=== PATIENT | male | born 1965 | race American Indian/Alaskan Native ===

== ENCOUNTER → 2016-07-17 | Outpatient (CLI) | payer BC ==
[~2016-07-17] MED LIST: CHOLESTEROL MED PO; MULT-506 PO; PARO1TAB27 PO
--- NOTE | 2016-07-17 13:46 | DIAGNOSTIC IMAGING REPORT ---
TWO VIEW CHEST CLINICAL HISTORY: Chronic cough. FINDINGS: PA and lateral chest radiographs are compared to study dated 01/01/2011. The cardiomediastinal silhouette is unremarkable. There are airspace opacities at the left lung base with elevation of the left hemidiaphragm. The lungs are otherwise clear. No pleural effusion or pneumothorax is seen. The bony thorax appears intact. IMPRESSION: Airspace opacities at the left lung base likely represent atelectasis. Correlate clinically for evidence of a superimposed infectious or inflammatory pneumonitis. Electronically signed by: Bartolo Garcia M.D. 07/17/2016 1:44 PM Dictated Date/Time: 07/17/2016 1:43 PM
== END | disposition home or self-care (01) ==
LOC: C.RAD1850 13:29
PROVIDERS: ATTEND Family Medicine
DX: R05 Cough (principal)

== ENCOUNTER → 2016-11-01 | Outpatient (CLI) | payer BC ==
[~2016-11-01] MED LIST changes: +LXP10 PO; +SIMV10TA2 PO
--- NOTE | 2016-11-01 09:35 | DIAGNOSTIC IMAGING REPORT ---
RIGHT KNEE 4 VIEWS INCLUDING BILATERAL STANDING AP VIEWS CLINICAL HISTORY: Right knee pain COMPARISON: None. DISCUSSION: No acute fractures are visualized. There are mild osteoarthritic changes. There is a small dorsal patellar spur. There is minor narrowing medial joint compartment. No destructive lesions are visualized. IMPRESSION: Mild osteoarthritic change. No acute fractures. Electronically signed by: Connor Quesada M.D. 11/01/2016 9:33 AM Dictated Date/Time: 11/01/2016 9:32 AM
== END | disposition home or self-care (01) ==
LOC: C.RDSM 09:25
PROVIDERS: ATTEND Physician Assistant
DX: M25.561 Pain in right knee (principal)

== ENCOUNTER → 2016-12-20 | Outpatient (CLI) | payer BC ==
--- NOTE | 2016-12-20 09:06 | DIAGNOSTIC IMAGING REPORT ---
(BLAD) RETROPERITONEAL LTD CLINICAL HISTORY: OVERFLOW INCONTINENCE, MICROSCOPIC HEMATURIA COMPARISON STUDY: Abdomen and pelvis CT 07/28/2010. FINDINGS: There is a 15 mm nodule seen within the posterior bladder. This is increased in size in the prior study study from 2010 when it measured 8 mm. This favors an exophytic prostate nodule. The prostate gland is mildly enlarged measuring 4.7 cm. Mild bladder wall thickening which may be due to chronic outlet obstruction. The bilateral ureteral jets are identified. IMPRESSION: Increase in size in the 15 mm nodule within the posterior bladder which favors an exophytic prostate nodule. However, recommend direct visualization with cystoscopy for confirmation and to exclude the less likely possibility of a urothelial lesion. Electronically signed by: Randy Padron M.D. 12/20/2016 9:04 AM Dictated Date/Time: 12/20/2016 8:59 AM
== END | disposition home or self-care (01) ==
LOC: C.ULTR 08:34
PROVIDERS: ATTEND Family Medicine
DX: N39.490 Overflow incontinence (principal); R31.29 Other microscopic hematuria

== ENCOUNTER → 2017-05-18 | Outpatient (CLI) | payer BC ==
[2017-05-18 16:17] LABS: BASO % 0.4 %; BASO ABS # 0.04 K/uL (0-0.2); COMPLETE YES; EOS % 3.1 %; HEMATOCRIT 43.6 % (42-52); IG% 0.2 %; LYMPH % 30.4 %; LYMPH ABS # 2.87 K/uL (1.2-3.4); MEAN CELL VOLUME 89.2 fL (80-100); MEAN CORPUSCULAR HEMOGLOBIN 30.9 pg (25-34); MEAN CORPUSCULAR HGB CONC 34.6 g/dl (32-36); MEAN PLATELET VOLUME 10.7 fL (7.4-10.4); MONO % 7.4 %; NEUT % 58.5 %; PLATELET COUNT 224 K/uL (130-400); RED BLOOD COUNT 4.89 M/uL (4.7-6.1); WHITE BLOOD COUNT 9.44 K/uL (4.8-10.8)
[2017-05-18 16:25] LABS: INR 1.1 (0.9-1.1); PARTIAL THROMBOPLASTIN RATIO 1.1; PROTHROMBIN TIME (PATIENT) 11.5 SECONDS (9.0-12.0)
[2017-05-18 16:42] LABS: BLOOD UREA NITROGEN 26 mg/dl (7-18); BUN/CREATININE RATIO 27.9 (10-20); CALCIUM 9.6 mg/dl (8.5-10.1); CARBON DIOXIDE 30 mmol/L (21-32); CHLORIDE 106 mmol/L (98-107); CREATININE 0.93 mg/dl (0.60-1.40); GLUCOSE 87 mg/dl (70-99); POTASSIUM 4.6 mmol/L (3.5-5.1); SODIUM 141 mmol/L (136-145)
== END | disposition home or self-care (01) ==
LOC: C.CPL 14:48
PROVIDERS: ATTEND Plastic Surgery
DX: D17.9 Benign lipomatous neoplasm, unspecified (principal); Z01.818 Encounter for other preprocedural examination

== ENCOUNTER → 2017-05-25 | Day surgery (SDC) | payer BC ==
[2017-05-22 15:22] VITALS: Ht 177.8 cm; Wt 95.5 kg
[~2017-05-25] VITALS: Ht 177.8 cm; Wt 95.5 kg
[~2017-05-25] MED LIST changes: +ACETAMINOPHEN 325 MG TAB PO PRN; +ATROPINE SULFATE 0.1 MG/ML 5ML SYR IV PRN; +BUPIVACAINE 0.25% 30 ML VIAL ONE; +CEFAZOLIN 2000MG IV PUSH 10 ML IV SCH; -CHOLESTEROL MED PO; +DEXAMETHASONE SOD INJ 4 MG/ML VIAL ONE; +EpHEDrine SULFATE INJ 50 MG/ML AMP IV PRN; +FENTANYL CITRATE INJ 50 MCG/1 ML 2 ML VIAL IV PRN; +FENTANYL CITRATE INJ 50 MCG/1 ML 2 ML VIAL ONE; +HYDROmorphone INJ 1 MG/ML SYR IV PRN; +LIDOCAINE/EPINEPHRINE 1% INJ 50 ML VIAL ONE; +METOCLOPRAMIDE HCL INJ 5 MG/ML 2 ML VIAL IV PRN; +MIDAZOLAM HCL 1 MG/ML 2ML VIAL ONE; -MULT-506 PO; +ONDANSETRON INJ 2 MG/ML 2 ML VIAL IV PRN; +ONDANSETRON INJ 2 MG/ML 2 ML VIAL ONE; +OXYCODONE/ACETAMINOPHEN 5-325 TAB PO PRN; -PARO1TAB27 PO; +PROMETHAZINE HCL INJ 12.5 MG in SODIUM CHLORIDE 0.9% 50ML 50 ML IV PRN; +PROPOFOL IV EMULSION 10 MG/ML 20 ML VIAL IV ONE; +SODIUM CHLORIDE 0.9% 1000ML 1,000 ML IV SCH; +SUCCINYLCHOLINE CHLORIDE 20 MG/ML 10 ML VIAL IV ONE
--- NOTE | 2017-05-25 09:49 | History & Physical Bridge - SC ---
H&P Re-Evaluation Bridge Note: I have examined the patient, reviewed the History & Physical and in the interval since the performance of the History & Physical I have noted the following changes of clinical significance: No changes noted
[2017-05-25] MEDS: LACTATED RINGER'S 1000ML 1,000 ML IV SCH ×2 (09:52→12:38)
--- NOTE | 2017-05-25 11:50 | [facility] Post Operative Brief Note ---
Immediate Operative Summary Operative Date May 25, 2017. Pre-Operative Diagnosis Right Lower Back Lipoma Post-Operative Diagnosis Same Procedure(s) Performed Right Lower Back Lipoma Excision Surgeon Dr. Diallo Developer Advocate Surgeon(s) Eugene Hsu PA-C Estimated Blood Loss 1 Findings 5x4 cm subcutaneous lipoma right lower back Specimens lipoma to path Anesthesia general Complication(s) None Disposition Recovery Room / PACU
--- NOTE | 2017-05-25 12:03 | Discharge Instructions ---
Discharge Instructions Date of Service May 25, 2017. Admission Reason for Admission: Lipoma Right Lower Back Discharge Discharge Diagnosis / Problem: lipoma Discharge Goals Goal(s): Decrease discomfort Activity Recommendations Activity Limitations: per Instructions/Follow-up section ACTIVITY RECOMMENDATIONS: __Normal activities _x_No bending, lifting or straining __No driving _x_Driving allowed when you are off pain medications _x_Walking permitted __You should have help at home for ___ days DRESSINGS: __No dressings required _x_Keep dressings dry/in place until Sunday. You do not need to place any dressing over incision after removing it on Sunday. Do not apply any ointments to your incision __Remove dressings ___ and leave dressings off __Apply ice ___ days __Remove dressings and reapply garment __Apply antibiotic ointment (Bacitracin, Neosporin, etc) to wounds 3-4 times/ day for 10 days BATHING: _x_Keep dressings dry _x_Sponge bathing permitted _x_Showering permitted on Sunday. Remove dressing before shower. Let water run over incision and pat dry. _x_No swimming, hot tubs or soaking in a tub MEDICATIONS: Resume previous medications unless instructed otherwise by your surgeon. _x_Do not use aspirin, Motrin, Advil or Ibuprofen as these may promote bleeding. Please use Tylenol. _x_Prescription(s) provided: pain medication was provided at your last office visit OTHER INSTRUCTIONS: __Record drain output 2-3 times per day SPECIAL CARE INSTRUCTIONS: * It is normal to have a mild fever after surgery. If your temperature is higher than 101.5 degrees F, please call the office at [phone]. * Constipation is a typical side effect of pain medication. An over-the- counter stool softener will help relieve this. * Leaking around surgical drains may occur and should not cause concern. Sometimes these drains become clogged. If this happens, remove the bulb and milk the clot out of the tube, then replace the bulb. * Drainage from wounds after liposuction is normal and should be expected. Garments will become soiled. You should protect furniture and bedding. This drainage should mostly subside within 2-3 days. Leave garments in place unless instructed to remove them. * If you have unusual drainage from a wound or are concerned you have an infection or have any questions or concerns, please call the office at [phone]. FOLLOW UP VISIT: If not already scheduled, please call the office, , when you return home after surgery to schedule an appointment to be seen in __5_ days. . Current Hospital Diet Patient's current hospital diet: Discharge Diet Recommended Diet: Regular Diet Procedures Procedures Performed: Right Lower Back Lipoma Excision Pending Studies Studies pending at discharge: yes List of pending studies: pathology Medical Emergencies . Who to Call and When: Medical Emergencies: If at any time you feel your situation is an emergency, please call 911 immediately. . Non-Emergent Contact Non-Emergency issues call your: Primary Care Provider, Surgeon . "Provider Documentation" section prepared by Berenice Hsu. . VTE Core Measure Inpt VTE Proph given/why not?: SCD's [place] Drug Monitoring Program Search Results: no issues identified
--- NOTE | 2017-05-25 12:23 | OPERATIVE REPORT ---
DATE OF OPERATION: 05/25/2017 PREOPERATIVE DIAGNOSIS: Right lower back lipoma. POSTOPERATIVE DIAGNOSIS: Same. PROCEDURE: Excision of 5 x 4 cm right lower back lipoma. SURGEON: Dr. Criselda Diallo. GUM PULLER: Berenice Hsu PA-C and MARGO Resendiz. ANESTHESIA: General. COMPLICATIONS: None. INDICATION FOR THE PROCEDURE: The patient is a 52-year-old male who presented to my office with concerns of an enlarging and uncomfortable mass of his right lower back felt to be a lipoma. BRIEF DESCRIPTION OF THE PROCEDURE: Risks, benefits, and alternatives of the procedure were explained to the patient who agreed and signed consent. He was identified and marked in the preoperative holding area. He was brought to the operating room where he was placed under anesthesia and then positioned prone. Surgical site was prepped and draped sterilely. A time-out procedure was performed. 1% lidocaine with epinephrine mixed with 0.25% Marcaine plain was used to anesthetize the planned incision as well as the surrounding soft tissue. A 15 blade scalpel was used to make the incision through skin and dermis deep to the dermis and within the underlying subcutaneous fat. A well circumscribed lipoma was identified. It was well encapsulated and the fibrous capsule and the attachments were carefully divided using electrocautery and a curved hemostat. The lipoma was able to be removed in its entirety. Hemostasis was achieved with electrocautery. Additional 0.25% Marcaine plain and 1% lidocaine with epinephrine were injected into the wound base prior to closure. Wound was reapproximated using 2-0 Vicryl deep dermal sutures and 3-0 Monocryl running subcuticular suture. Dermabond was applied. The procedure was tolerated well. The patient was awakened and transferred to recovery room in satisfactory condition. I attest to the content of the Intraoperative Record and any orders documented therein. Any exception s are noted below.
[2017-05-25 12:54] VITALS: TEMP 36.4
--- NOTE | 2017-05-25 13:08 | Anesthesia Progress Nt - [facility] ---
Anesthesia Post Op Note Date & Time May 25, 2017 at 13:08 Vital Signs Pain Intensity: 0 Vital Signs Past 12 Hours Date Time Temp Pulse Resp B/P (MAP) Pulse Ox O2 Delivery O2 Flow Rate FiO2 05/25/17 12:54 36.4 56 16 127/81 (96) 100 Room Air 05/25/17 12:52 36.4 05/25/17 12:51 56 13 132/65 (92) 96 05/25/17 12:51 55 13 05/25/17 12:46 55 13 05/25/17 12:46 54 13 125/78 (98) 97 05/25/17 12:41 58 11 99 05/25/17 12:41 57 11 05/25/17 12:40 142/90 (103) 05/25/17 12:36 56 15 05/25/17 12:36 57 15 122/86 (101) 99 05/25/17 12:31 61 18 05/25/17 12:31 60 18 137/61 (101) 100 05/25/17 12:26 63 16 100 05/25/17 12:26 63 16 05/25/17 12:25 130/94 (105) 05/25/17 12:21 65 14 05/25/17 12:21 64 14 100 05/25/17 12:20 138/93 (116) 05/25/17 12:20 Room Air 05/25/17 12:16 59 14 100 05/25/17 12:16 61 14 05/25/17 12:15 129/89 (94) 05/25/17 12:11 64 134/78 (99) 99 05/25/17 12:11 64 05/25/17 12:08 36.3 63 12 134/78 5 Diffusion Mask 05/25/17 09:42 36.6 59 16 131/77 (95) 98 Room Air Notes Mental Status: alert / awake / arousable, participated in evaluation Pt Amnestic to Procedure: Yes Nausea / Vomiting: adequately controlled Pain: adequately controlled Airway Patency, RR, SpO2: stable & adequate BP & HR: stable & adequate Hydration State: stable & adequate Anesthetic Complications: no major complications apparent
[2017-05-25 13:19] VITALS: BP 127/79; PULSE 52; O2SAT 99
== END | disposition home or self-care (01) ==
LOC: X.SURG 09:26
PROVIDERS: ATTEND Plastic Surgery
DX: D17.9 Benign lipomatous neoplasm, unspecified (principal); F41.9 Anxiety disorder, unspecified; E78.5 Hyperlipidemia, unspecified; Z90.89 Acquired absence of other organs; E78.00 Pure hypercholesterolemia, unspecified; N40.0 Benign prostatic hyperplasia without lower urinary tract symptoms

== ENCOUNTER → 2017-07-31 | Outpatient (CLI) | payer OTHER ==
[~2017-07-31] MED LIST changes: -ACETAMINOPHEN 325 MG TAB PO PRN; -ATROPINE SULFATE 0.1 MG/ML 5ML SYR IV PRN; -BUPIVACAINE 0.25% 30 ML VIAL ONE; -CEFAZOLIN 2000MG IV PUSH 10 ML IV SCH; -DEXAMETHASONE SOD INJ 4 MG/ML VIAL ONE; -EpHEDrine SULFATE INJ 50 MG/ML AMP IV PRN; -FENTANYL CITRATE INJ 50 MCG/1 ML 2 ML VIAL IV PRN; -FENTANYL CITRATE INJ 50 MCG/1 ML 2 ML VIAL ONE; -HYDROmorphone INJ 1 MG/ML SYR IV PRN; -LIDOCAINE/EPINEPHRINE 1% INJ 50 ML VIAL ONE; -METOCLOPRAMIDE HCL INJ 5 MG/ML 2 ML VIAL IV PRN; -MIDAZOLAM HCL 1 MG/ML 2ML VIAL ONE; -ONDANSETRON INJ 2 MG/ML 2 ML VIAL IV PRN; -ONDANSETRON INJ 2 MG/ML 2 ML VIAL ONE; -OXYCODONE/ACETAMINOPHEN 5-325 TAB PO PRN; -PROMETHAZINE HCL INJ 12.5 MG in SODIUM CHLORIDE 0.9% 50ML 50 ML IV PRN; -PROPOFOL IV EMULSION 10 MG/ML 20 ML VIAL IV ONE; -SODIUM CHLORIDE 0.9% 1000ML 1,000 ML IV SCH; -SUCCINYLCHOLINE CHLORIDE 20 MG/ML 10 ML VIAL IV ONE
--- NOTE | 2017-07-31 13:48 | DIAGNOSTIC IMAGING REPORT ---
SACRUM COCCYX MIN 2 VIEWS HISTORY: 52 years-old Male M53.3 acute coccygeal pain status post fall COMPARISON: CT abdomen and pelvis 07/28/2010, sacral radiographs 04/05/2010 TECHNIQUE: 3 views of the sacrum and coccyx FINDINGS: There is slight volar displacement of 3 mm involving the distal most portion of the coccyx which is unchanged from 04/05/2010. No acute fracture or subluxation identified. No pelvic ring fracture identified. Mild degenerative changes of the bilateral hips with intervertebral disc space narrowing and facet arthrosis of the lower lumbar spine. Indeterminate calcification projects over the left scrotal region, 8 mm. IMPRESSION: No acute fracture or subluxation. The above report was generated using voice recognition software. It may contain grammatical, syntax or spelling errors. Electronically signed by: Brice Reyes M.D. 07/31/2017 1:47 PM Dictated Date/Time: 07/31/2017 1:44 PM
== END | disposition home or self-care (01) ==
LOC: C.RAD 12:56
PROVIDERS: ATTEND Nurse Practitioner Family
DX: M53.3 Sacrococcygeal disorders, not elsewhere classified (principal)

== ENCOUNTER → 2017-08-02 | Outpatient (CLI) | payer OTHER ==
--- NOTE | 2017-08-02 07:34 | DIAGNOSTIC IMAGING REPORT ---
LEFT SHOULDER MRI HISTORY: Left shoulder pain. TECHNIQUE: Multiplanar multisequence MRI of the left shoulder was performed without contrast. COMPARISON STUDY: Left shoulder 06/26/2012. FINDINGS: AC joint: Moderate AC joint arthrosis demonstrated by small marginal osteophytes and edema both within and surrounding the joint. Rotator cuff: The subscapularis and teres minor tendons are intact. Focal full-thickness tear at the distal supraspinatus tendon measuring 6 mm. There is a partial bursal surface tear at the distal infraspinatus tendon. No associated retraction within the rotator cuff muscles. Mild fatty atrophy of the supraspinatus muscle. There is mild edema within the posterior aspect of the supraspinatus muscle. Labrum: Suboptimal evaluation of the labrum due to motion artifact. However, the labrum appears grossly intact. Biceps tendon: Intact Bones: No fracture or dislocation. Normal marrow signal intensity seen throughout the visualized osseous structures. Cartilage: Near full-thickness cartilage loss within the inferior glenoid. There is moderate thickening of the humeral head cartilage. There are marginal osteophytes seen at the humeral head. Findings are consistent with mild to moderate osteoarthritis. Miscellaneous: Trace joint effusion. IMPRESSION: 1. Focal full-thickness tear at the distal supraspinatus tendon without associated retraction. 2. Partial bursal surface tear at the distal infraspinatus tendon. 3. Mild to moderate osteoarthritis within the glenohumeral joint. Electronically signed by: Randy Padron M.D. 08/02/2017 7:33 AM Dictated Date/Time: 08/02/2017 7:26 AM
== END | disposition home or self-care (01) ==
LOC: C.MRI 06:03
PROVIDERS: ATTEND Family Medicine
DX: M75.102 Unspecified rotator cuff tear or rupture of left shoulder, not specified as traumatic (principal); M19.012 Primary osteoarthritis, left shoulder

== ENCOUNTER 2019-07-29 05:48 | Inpatient (IN) ==
--- NOTE | 2019-07-17 16:21 | PAT Medication Instructions ---
Medication Instructions Date of Service July 17, 2019 Home Medications simvastatin 10 mg PO HS Take evening before surgery simvastatin 10 mg PO HS *THEN NOTHING TO EAT OR DRINK AFTER MIDNIGHT* Other Notes If you have any questions please call us at [phone] or [phone] or [phone] or [phone]
--- NOTE | 2019-07-18 09:22 | Anesthesiology Consultation ---
Date of Service July 18, 2019 Assessment & Plan (1) Encounter for pre-operative examination: Chart Review Chart Review: Acceptable Risk for Surgery (pending pre op labs) and Patient seen in Pre Admission Testing Teaching & Discussion Instructed NPO after midnight before surgery, except medications with 15 cc of water. Medication instructions provided according to the PAT guidelines. History Surgery Operation Date: 07/29/19 07:30 Proposed Procedures p Right Robotic Laparoscopic Assisted Partial Nephrectomy - Curtis Sinha MD Height/Weight Height: 5 ft 8 in Weight: 92.3 kg Allergies Allergy/AdvReac Type Severity Reaction Status Date / Time WASP STING Allergy Unknown HX OF , Uncoded 07/17/19 15:28 SOB - SEE NOTES BELOW Medications Home Medications Medication Instructions Recorded Confirmed Last Taken simvastatin 10 mg PO HS 11/24/18 07/17/19 07/16/19 Past Medical History Medical History Claustrophobia Hyperlipidemia Pulmonary nodule Right renal mass Exercise / Class Metabolic Activity II 4-5 Yardwork/Stairs/Walk up hill (Denies CP or SOB with 1 FOS) Past Surgical History Surgical History History of appendectomy History of colonoscopy History of hernia surgery X3 History of knee surgery History of transurethral resection of prostate X2 Past Anesthesia History No Hx of Anesthesia Complications and No Family Hx of Anesthesia Complications History of PONV No Hx of PONV and Hx of Motion Sickness Social History Smoking Status: Never smoker Do You Dip or Chew Tobacco: No Hx Alcohol Use: No Hx Substance Use: No substance use type: does not use Review of Systems Pt denies any recent chest pain, shortness of breath, palpitations, cough, fever or URI. Physical Exam Vital Signs BP: 142/79 P: 69bpm SPO2: 98% RA T: 97.9 F R: 16 ENMT Mouth: + dental bridge (large, upper front teeth); no chipped teeth and no loose teeth Thyromental Distance: > or= 3.5 Finger Breadths (3.5) Mallampati Class: I Neck normal visual inspection; neck extension not limited Respiratory normal respiratory effort Auscultation: lungs clear to auscultation bilaterally Cardiovascular Rate/Rhythm: regular rate and regular rhythm Heart Sounds: no murmur Vessels: no carotid bruit
[2019-07-18 11:06] LABS: Appearance Urine Clear (Clear); Basophils # (auto) 0.01 K/uL (0-0.2); Basophils % (auto) 0.2 %; Bilirubin Urine Negative (Negative); Blood Urine Negative (Negative); Color Urine Dark Yellow; Eosinophils # (auto) 0.24 K/uL (0-0.5); Eosinophils % (auto) 3.8 %; Glucose Urine UA Negative (Negative); Hematocrit (blood only) 42.8 % (42-52); Hemoglobin 14.7 g/dL (14.0-18.0); Immature Granulocytes # (auto) 0.01 K/uL (0.00-0.02); Immature Granulocytes % (auto) 0.2 %; Ketones Urine Negative (Negative); Leukocyte Esterase Urine Negative (Negative); Lymphocytes # (auto) 1.87 K/uL (1.2-3.4); Lymphocytes % (auto) 29.3 %; Mean Corpuscular Hemoglobin 30.1 pg (25-34); Mean Corpuscular Hgb Conc 34.3 g/dL (32-36); Mean Corpuscular Volume 87.5 fL (80-100); Mean Platelet Volume 10.8 fL (7.4-10.4); Monocytes % (auto) 9.4 %; Neutrophils # (auto) 3.66 K/uL (1.4-6.5); Neutrophils % (auto) 57.1 %; Nitrite Urine Negative (Negative); Platelet Count 202 K/uL (130-400); Protein Urine Negative (Negative); RDW Coefficient of Variation 12.7 % (11.5-14.5); RDW Standard Deviation 40.6 fL (36.4-46.3); Red Blood Count 4.89 M/uL (4.7-6.1); Specific Gravity Urine 1.026 (1.000-1.030); Urobilinogen Urine Negative (Negative); White Blood Count 6.39 K/uL (4.8-10.8)
[2019-07-18 11:29] LABS: BUN Creatinine Ratio 22.2 (10-20); Calcium 9.5 mg/dl (8.5-10.1); Creatinine Clr Calc Pharmacy 113.5 ml/min; Est GFR (African American) 116.4; Est GFR (Non-African American) 100.5; Potassium 3.9 mmol/L (3.5-5.1)
[2019-07-29] MEDS ORDERED: CEFAZOLIN 2000MG 2,000 MG/15 ML SYR IV SCH (06:00)
[2019-07-29] MEDS ORDERED: ACETAMINOPHEN 1000 MG/100 ML IV IV SCH (06:00)
[2019-07-29] MEDS ORDERED: LR 15ML/HR IV SCH (06:00)
[2019-07-29] MEDS ORDERED: MIDAZOLAM HCL 1 MG/ML 2ML VIAL ONE (07:03)
[2019-07-29] MEDS ORDERED: LIDOCAINE HCL 2% 2 ML VIAL/AMP(20MG/ML) INFIL ONE (07:03)
[2019-07-29] MEDS ORDERED: LARYING-O-JET KIT (LTA) ONE (07:03)
[2019-07-29] MEDS ORDERED: ONDANSETRON INJ 2 MG/ML 2 ML VIAL ONE (07:03)
[2019-07-29] MEDS ORDERED: PROPOFOL IV EMULSION 10 MG/ML 20 ML VIAL IV ONE (07:03)
[2019-07-29] MEDS ORDERED: ROCURONIUM BROMIDE 10 MG/ML 5 ML VIAL ONE ×6 (07:03→10:49)
[2019-07-29] MEDS ORDERED: DEXAMETHASONE SOD INJ 4 MG/ML VIAL ONE (07:03)
[2019-07-29] MEDS ORDERED: fentaNYL citrate 100 MCG/2 ML VIAL ONE ×2 (07:04→08:19)
--- NOTE | 2019-07-29 07:04 | History & Physical Bridge Note ---
Date of Service July 29, 2019 History & Physical Bridge Note I have examined the patient, reviewed the History & Physical and in the interval since the performance of the History & Physical I have noted the following changes of clinical significance: no changes noted
[2019-07-29] MEDS ORDERED: BUPIVACAINE 0.5 % 5 MG/1 ML MPF 30ML VIAL ONE (07:10)
[2019-07-29] MEDS ORDERED: GELATIN SPONGE SZ 100 ONE (07:10)
[2019-07-29] MEDS ORDERED: HYDROmorphone INJ 2 MG/ML SYR/VIAL ONE (08:25)
[2019-07-29] MEDS ORDERED: PROMETHAZINE HCL 12.5 MG in SODIUM CHLORIDE 0.9% 50 ML IV PRN (08:54)
[2019-07-29] MEDS ORDERED: ATROPINE SULFATE 0.1 MG/ML 10ML SYR IV PRN (08:54)
[2019-07-29] MEDS ORDERED: ePHEDrine sulfate 50 MG/ML AMP IV PRN (08:54)
[2019-07-29] MEDS ORDERED: ONDANSETRON INJ 2 MG/ML 2 ML VIAL IV PRN (08:54)
[2019-07-29] MEDS ORDERED: HYDROmorphone INJ 2 MG/ML SYR/VIAL IV PRN (08:54)
--- NOTE | 2019-07-29 08:57 | Procedure Note ---
Procedure Note Date of Service July 29, 2019 Radial arterial line placed in OR 11 after induction in preparation for partial nephrectomy with Dr. Sinha. Left wrist prepped with chlorhexidine and draped with sterile towels. 20 G angiocath placed under sterile technique utilizing sterile gloves, surgical hats and masks. Catheter threaded using seldinger technique with return of pulsatile, bright red blood. Site covered with occlusive dressing and taped in place. Waveform consistent with correct arterial placement. After placement, fingers of procedural hand had normal perfusion. Patient tolerated procedure well without complications. Procedure performed by Yen Sanchez. I was personally present during placement. Misty Denson MD, PhD Coding
[2019-07-29] MEDS ORDERED: MANNITOL 25% 12.5 GM/50 ML VIAL IV ONE ×2 (09:41)
[2019-07-29] MEDS ORDERED: TISSEEL FIBRIN SEALANT 10ML TOP ONE (10:37)
[2019-07-29] MEDS ORDERED: SURGICEL ABSORB HEMOSTAT 2IN X 14IN TOP ONE (10:37)
[2019-07-29] MEDS ORDERED: NEOSTIGMINE METHYLSULFATE 5 MG/5 ML SYR ONE (10:45)
[2019-07-29] MEDS ORDERED: GLYCOPYRROLATE 0.2 MG/ML VIAL ONE (10:45)
--- NOTE | 2019-07-29 11:15 | Operative Report ---
PG Post Operative Report Pre & Post Diagnosis Operation Date: 07/29/19 07:30 Pre-Op Diagnosis: Right Renal Mass Post-Op Diagnosis: Right Renal Mass I identified the patient and participated in the time-out.: Yes Procedure Operation Date: 07/29/19 07:30 Actual Procedures p Right Robotic Laparoscopic Assisted Partial Nephrectomy(Right) - Curtis Sinha MD Surgeon Curtsi Sinha MD Sales Agent [employer] Mati Carreon MD, ML DELMY Keene, Josselyn BROCK Estimated Blood Loss 50 Findings Consistent with Post-Op Diagnosis Specimens R renal mass, fat overlying tumor Description of Procedure See above I attest to the content of the Intraoperative Record and any orders documented therein. Any exceptions are noted below.
[2019-07-29 11:41] LABS: Basophils # (auto) 0.02 K/uL (0-0.2); Basophils % (auto) 0.1 %; Eosinophils # (auto) 0.02 K/uL (0-0.5); Eosinophils % (auto) 0.1 %; Hematocrit (blood only) 40.5 % (42-52); Hemoglobin 14.3 g/dL (14.0-18.0); Immature Granulocytes # (auto) 0.02 K/uL (0.00-0.02); Immature Granulocytes % (auto) 0.1 %; Lymphocytes % (auto) 11.3 %; Mean Corpuscular Hemoglobin 30.6 pg (25-34); Mean Corpuscular Volume 86.5 fL (80-100); Mean Platelet Volume 10.3 fL (7.4-10.4); Monocytes # (auto) 0.23 K/uL (0.11-0.59); Monocytes % (auto) 1.6 %; Neutrophils # (auto) 12.28 K/uL (1.4-6.5); Neutrophils % (auto) 86.8 %; Platelet Count 232 K/uL (130-400); RDW Coefficient of Variation 12.6 % (11.5-14.5); RDW Standard Deviation 40.1 fL (36.4-46.3); Red Blood Count 4.68 M/uL (4.7-6.1); White Blood Count 14.17 K/uL (4.8-10.8)
[2019-07-29 11:49] LABS: Mean Corpuscular Hgb Conc 35.3 g/dL (32-36)
[2019-07-29] MEDS: fentaNYL citrate 100 MCG/2 ML VIAL IV PRN ×2 (11:49→12:06)
[2019-07-29 11:58] LABS: BUN Creatinine Ratio 13.2 (10-20); Calcium 8.4 mg/dl (8.5-10.1); Creatinine Clr Calc Pharmacy 83.7 ml/min; Est GFR (African American) 87.4; Est GFR (Non-African American) 75.4; Potassium 4.1 mmol/L (3.5-5.1)
--- NOTE | 2019-07-29 12:28 | Anesthesiology Progress Note ---
Date of Service July 29, 2019 Anesthesia Post Procedure Vital Signs Vital Signs: Temp Pulse Pulse Resp BP Pulse Ox 07/29/19 12:25 70 12 130/69 96 07/29/19 12:15 37.2 C 69 10 L 118/64 96 07/29/19 12:05 72 16 121/69 96 07/29/19 11:55 66 14 125/72 96 07/29/19 11:45 64 10 L 127/72 96 07/29/19 11:35 68 21 143/83 H 97 07/29/19 11:27 36.9 C 85 18 136/84 98 07/29/19 06:08 36.7 C 71 20 138/89 98 Pain Intensity Right Abdomen: Pain Intensity: 2 Transfer of Care Handoff Completed per policy Notes Mental Status: alert / awake / arousable and participated in evaluation Patient Amnestic to Procedure: Yes Nausea / Vomiting: adequately controlled Pain: adequately controlled Airway Patency, RR, SpO2: stable & adequate BP & HR: stable & adequate Hydration State: stable & adequate Anesthetic Complications: no major complications apparent and Pt Satisfied with anesthetic care
[2019-07-29] MEDS ORDERED: HYDROmorphone INJ 1 MG/ML SYRINGE IV PRN ×2 (12:55)
[2019-07-29] MEDS ORDERED: OXYCODONE HCL IR 5 MG TAB (IMMEDIATE RELEASE) PO PRN (12:55)
[2019-07-29] MEDS: ACETAMINOPHEN 1,000 MG/100 ML VIAL IV SCH ×2 (13:16→20:14)
[2019-07-29] MEDS: LACTATED RINGER'S 1,000 ML IV SCH ×2 (13:16→21:19)
[2019-07-29] MEDS: CEFAZOLIN 2000MG 2,000 MG/15 ML SYR IV SCH ×2 (16:16→23:46)
[2019-07-29] MEDS: DOCUSATE SODIUM 100 MG CAP PO SCH (20:13)
[2019-07-29] MEDS: FAMOTIDINE 10 MG TABLET PO SCH (20:13)
[2019-07-29] MEDS: SIMVASTATIN 10 MG TAB PO SCH (20:14)
[2019-07-29] MEDS: HEPARIN SOD 5,000 UNIT/0.5 ML VIAL SQ SCH (20:14)
[2019-07-29] MEDS: OXYCODONE HCL IR 5 MG TAB (IMMEDIATE RELEASE) PO PRN (23:27)
[2019-07-29] MEDS: ONDANSETRON INJ 2 MG/ML 2 ML VIAL IV PRN (23:49)
[2019-07-30] MEDS: LACTATED RINGER'S 1,000 ML IV SCH ×3 (05:17→21:21)
[2019-07-30] MEDS: ACETAMINOPHEN 1,000 MG/100 ML VIAL IV SCH ×3 (05:17→20:48)
[2019-07-30] MEDS: OXYCODONE HCL IR 5 MG TAB (IMMEDIATE RELEASE) PO PRN ×2 (05:18→11:36)
[2019-07-30 06:50] LABS: Basophils # (auto) 0.03 K/uL (0-0.2); Basophils % (auto) 0.3 %; Eosinophils # (auto) 0.05 K/uL (0-0.5); Eosinophils % (auto) 0.4 %; Hematocrit (blood only) 35.5 % (42-52); Hemoglobin 12.4 g/dL (14.0-18.0); Immature Granulocytes # (auto) 0.02 K/uL (0.00-0.02); Immature Granulocytes % (auto) 0.2 %; Lymphocytes # (auto) 1.32 K/uL (1.2-3.4); Lymphocytes % (auto) 11.4 %; Mean Corpuscular Hemoglobin 30.4 pg (25-34); Mean Corpuscular Hgb Conc 34.9 g/dL (32-36); Mean Platelet Volume 10.2 fL (7.4-10.4); Monocytes # (auto) 1.29 K/uL (0.11-0.59); Monocytes % (auto) 11.1 %; Neutrophils # (auto) 8.91 K/uL (1.4-6.5); Neutrophils % (auto) 76.6 %; Platelet Count 193 K/uL (130-400); RDW Coefficient of Variation 12.7 % (11.5-14.5); RDW Standard Deviation 40.7 fL (36.4-46.3); Red Blood Count 4.08 M/uL (4.7-6.1); White Blood Count 11.62 K/uL (4.8-10.8)
--- NOTE | 2019-07-30 07:16 | Urology Progress Note ---
Date of Service July 30, 2019 Assessment & Plan (1) Right renal mass: A/P 54 yo male POD#1 s/p R robotic partial nephrectomy. Doing well. Will advance diet - full liquids for breakfast, can have regular / soft mechanical if tolerated. If does well with diet, DC IVF later today. Will remove walker. Patient doing well with activity and pain control - if tolerates diet, can DC DARI and DC home later today. DC plan reviewed with patient and who vocalize good understanding of the treatment plan. Subjective 54 yo male POD#1 s/p R robotic partial nephrectomy. OVN events noted, AM labs reviewed. present in room, spent the night. Patient somewhat anxious, noted hand swelling yesterday likely due to positioning and IVF. Ambulatory yesterday, reports he "didn't like" diet, appetite improving. + gas feeling, no flatus or BM yet, no N/V. They note pain controlled with oral meds, IV Tylenol continues. AM BMP pending. Review of Systems Constitutional: no fever and no chills Eyes: no diplopia Ear, Nose, Mouth, Throat: no ear trauma Respiratory: no hemoptysis Cardiovascular: no chest pain Gastrointestinal: + abdominal pain (mild); no nausea and no vomiting Genitourinary: + hematuria (improving postop) Musculoskeletal: no muscle weakness Integumentary: no acne and no boil Neurologic: no paralysis Psychiatric: no hopelessness Endocrine: + fatigue Hematologic / Lymphatic: no easy bleeding and no lymphadenopathy Allergy / Immunological: no tongue swelling Physical Exam Constitutional: well developed and well nourished; no acute distress Eyes: eyes not dysmorphic ENMT: Ears: no external ear abnormality Neck: trachea midline; no anterior neck swelling Respiratory: no respiratory distress and does not use accessory muscles Cardiovascular: Vessels: radial pulses present Gastrointestinal (Abdomen): Inspection/Auscultation: abdomen not distended Percussion/Palpation: abdomen soft; abdomen nontender inc c/d/i, DARI in place Musculoskeletal: Head/Neck/Chest: normocephalic and neck supple Skin: normal turgor Neurologic: awake; not obtunded Psychiatric: Orientation: oriented x 3 Lymphatic: no lymphadenopathy Results & Data Vital Signs (Past 12 Hours) Vital Signs Temp Pulse Resp BP Pulse Ox 07/30/19 07:08 37.3 C 91 H 18 156/85 H 93 07/30/19 03:34 37.4 C 91 H 16 159/83 H 94 07/29/19 23:45 36.9 C 76 16 153/80 H 94 07/29/19 20:58 37.2 C 76 16 138/70 94 Laboratory Results Laboratory Results - last 48 hr 07/29/19 07/29/19 07/29/19 06:04 11:29 11:29 WBC 14.17 H RBC 4.68 L Hgb 14.3 Hct 40.5 L MCV 86.5 MCH 30.6 MCHC 35.3 RDW Std Deviation 40.1 RDW Coeff of Milvia 12.6 Plt Count 232 MPV 10.3 Immature Gran % (Auto) 0.1 Neut % (Auto) 86.8 Lymph % (Auto) 11.3 Grundy % (Auto) 1.6 Eos % (Auto) 0.1 Baso % (Auto) 0.1 Immature Gran # (Auto) 0.02 Neut # (Auto) 12.28 H Lymph # (Auto) 1.60 Grundy # (Auto) 0.23 Eos # (Auto) 0.02 Baso # (Auto) 0.02 Sodium 136 Potassium 4.1 Chloride 107 Carbon Dioxide 24 Anion Gap 5.0 BUN 15 Creatinine 1.11 Est Cr Clr Drug Dosing 83.7 Est GFR ( Amer) 87.4 Est GFR (Non-Af Amer) 75.4 BUN/Creatinine Ratio 13.2 Glucose 162 H Calcium 8.4 L Blood Type A Positive Antibody Screen NEGATIVE Crossmatch See Detail 07/30/19 06:29 WBC 11.62 H RBC 4.08 L Hgb 12.4 L Hct 35.5 L MCV 87.0 MCH 30.4 MCHC 34.9 RDW Std Deviation 40.7 RDW Coeff of Milvia 12.7 Plt Count 193 MPV 10.2 Immature Gran % (Auto) 0.2 Neut % (Auto) 76.6 Lymph % (Auto) 11.4 Grundy % (Auto) 11.1 Eos % (Auto) 0.4 Baso % (Auto) 0.3 Immature Gran # (Auto) 0.02 Neut # (Auto) 8.91 H Lymph # (Auto) 1.32 Grundy # (Auto) 1.29 H Eos # (Auto) 0.05 Baso # (Auto) 0.03 Sodium Potassium Chloride Carbon Dioxide Anion Gap BUN Creatinine Est Cr Clr Drug Dosing Est GFR ( Amer) Est GFR (Non-Af Amer) BUN/Creatinine Ratio Glucose Calcium Blood Type Antibody Screen Crossmatch PG Care Time/CCT Total # of Minutes Spent Total Time Spent with Patient: Total time spent is greater than 50% in coordination of care (as documented) at patient's floor/unit and/or counseling patient:
[2019-07-30 07:26] LABS: BUN Creatinine Ratio 12.3 (10-20); Calcium 8.5 mg/dl (8.5-10.1); Creatinine Clr Calc Pharmacy 103.3 ml/min; Est GFR (African American) 112.6; Est GFR (Non-African American) 97.2; Potassium 3.8 mmol/L (3.5-5.1)
--- NOTE | 2019-07-30 08:41 | Anesthesiology Progress Note ---
Date of Service July 30, 2019 Anesthesia Post Procedure Vital Signs Vital Signs: Temp Pulse Pulse Resp BP Pulse Ox 07/30/19 07:08 37.3 C 91 H 18 156/85 H 93 07/30/19 03:34 37.4 C 91 H 16 159/83 H 94 07/29/19 23:45 36.9 C 76 16 153/80 H 94 07/29/19 20:58 37.2 C 76 16 138/70 94 07/29/19 16:45 36.7 C 86 16 144/70 H 96 07/29/19 15:27 36.5 C 86 18 130/73 95 07/29/19 13:35 36.5 C 73 16 125/72 97 07/29/19 13:05 36.7 C 73 16 115/70 97 07/29/19 12:35 36.3 C L 83 18 120/70 97 07/29/19 12:25 70 12 130/69 96 07/29/19 12:15 37.2 C 69 10 L 118/64 96 07/29/19 12:05 72 16 121/69 96 07/29/19 11:55 66 14 125/72 96 07/29/19 11:45 64 10 L 127/72 96 07/29/19 11:35 68 21 143/83 H 97 07/29/19 11:27 36.9 C 85 18 136/84 98 Pain Intensity Right Abdomen: Pain Intensity: 6 Notes Mental Status: alert / awake / arousable and participated in evaluation Patient Amnestic to Procedure: Yes Nausea / Vomiting: adequately controlled Pain: adequately controlled Airway Patency, RR, SpO2: stable & adequate BP & HR: stable & adequate Hydration State: stable & adequate Anesthetic Complications: no major complications apparent and Pt Satisfied with anesthetic care
[2019-07-30] MEDS: FAMOTIDINE 10 MG TABLET PO SCH ×2 (09:00→20:48)
[2019-07-30] MEDS ORDERED: MULTIVITAMIN TAB PO SCH (09:00)
[2019-07-30] MEDS: DOCUSATE SODIUM 100 MG CAP PO SCH ×2 (09:01→20:48)
[2019-07-30] MEDS: HEPARIN SOD 5,000 UNIT/0.5 ML VIAL SQ SCH ×2 (09:02→20:52)
[2019-07-30] MEDS: ONDANSETRON INJ 2 MG/ML 2 ML VIAL IV PRN (12:29)
[2019-07-30] MEDS: SIMVASTATIN 10 MG TAB PO SCH (20:48)
[2019-07-31] MEDS: LACTATED RINGER'S 1,000 ML IV SCH (05:11)
[2019-07-31] MEDS: ACETAMINOPHEN 1,000 MG/100 ML VIAL IV SCH (05:12)
[2019-07-31 06:36] LABS: Basophils # (auto) 0.02 K/uL (0-0.2); Basophils % (auto) 0.2 %; Eosinophils # (auto) 0.19 K/uL (0-0.5); Eosinophils % (auto) 1.6 %; Hematocrit (blood only) 34.4 % (42-52); Hemoglobin 11.8 g/dL (14.0-18.0); Immature Granulocytes # (auto) 0.03 K/uL (0.00-0.02); Immature Granulocytes % (auto) 0.3 %; Lymphocytes # (auto) 1.24 K/uL (1.2-3.4); Lymphocytes % (auto) 10.5 %; Mean Corpuscular Hemoglobin 30.3 pg (25-34); Mean Corpuscular Hgb Conc 34.3 g/dL (32-36); Mean Corpuscular Volume 88.2 fL (80-100); Mean Platelet Volume 10.7 fL (7.4-10.4); Monocytes # (auto) 1.38 K/uL (0.11-0.59); Monocytes % (auto) 11.7 %; Neutrophils # (auto) 8.97 K/uL (1.4-6.5); Neutrophils % (auto) 75.7 %; Platelet Count 179 K/uL (130-400); RDW Coefficient of Variation 12.6 % (11.5-14.5); RDW Standard Deviation 40.4 fL (36.4-46.3); White Blood Count 11.83 K/uL (4.8-10.8)
[2019-07-31 07:14] LABS: BUN Creatinine Ratio 11.4 (10-20); Calcium 8.8 mg/dl (8.5-10.1); Creatinine Clr Calc Pharmacy 119.1 ml/min; Est GFR (African American) 119.4; Est GFR (Non-African American) 103.1; Potassium 3.6 mmol/L (3.5-5.1)
--- NOTE | 2019-07-31 09:19 | Urology Progress Note ---
Date of Service July 31, 2019 Assessment & Plan (1) Right renal mass: A/P 54 yo male POD#2 s/p R robotic partial nephrectomy with Dr. Sinha Voiding spontaneously, nausea and dizziness have resolved. Pt tolerating mech/soft diet well. Doing well with activity and pain controlled. Pt feels ready for discharge. Instructions again reviewed, verbalizes good understanding. Okay to d/c DARI drain prior to discharge. Subjective 54 yo male POD#2 s/p R robotic partial nephrectomy. OVN events noted, AM labs reviewed. present in room, spent the night. Diet improved, states he was trying to "force" jello this AM which made him naus eated. Now eating oatmeal and eggs without difficulty this AM. bloating improved, +flatus, no BM yet. nausea greatly improved Voiding spontaneously AMbulating well, pain controlled. Labs this AM reviewed, Cr 0.78 Review of Systems Review of Systems: All systems reviewed & are unremarkable except as noted in HPI & below Physical Exam Physical Exam: A&Ox3 Resp rate reg abd soft, nontender incisions c/d/i - tenderness upon palpation as expected. slight ecchymosis to posterior incision, no hematoma. Results & Data Vital Signs (Past 12 Hours) Vital Signs Temp Pulse Resp BP Pulse Ox 07/31/19 07:38 36.9 C 86 18 136/79 93 07/30/19 23:33 37.3 C 72 16 148/80 H 96 PG Care Time/CCT Total # of Minutes Spent Total Time Spent with Patient: Total time spent is greater than 50% in coordination of care (as documented) at patient's floor/unit and/or counseling patient:
--- NOTE | 2019-07-31 12:40 | Operative Report ---
PG Post Operative Report Pre & Post Diagnosis Operation Date: 07/29/19 07:30 Pre-Op Diagnosis: Right lower pole central 1.7 cm suspicious renal Mass Post-Op Diagnosis: Same Surgeon: Dr. Curtis Sinha. Assistants: Dr. Amor Carreon, Anitha BROCK, Haritha BROCK. Assistance present throughout case for suction, retraction, exposure, instrument and needle passage, division of suture, patient positioning and general patient safety. Anesthesia: General anesthesia with endotracheal ablation plus local at port sites. Drains left in place: Horton catheter to gravity drainage, #10 DARI drain in the right paracolic gutter. Specimen sent to pathology: Right renal mass, fat overlying tumor. Complications: None. Findings: Deep renal lesion visible on intraoperative ultrasound within the lower pole of the kidney with a visually negative margin, tumor visible at the deepest aspect of the kidney. Collecting system and deep vessels closed in a separate layer and apparent watertight fashion. Excellent hemostasis and clamped. 15-minute warm ischemia time. I identified the patient and participated in the time-out.: Yes Procedure Operation Date: 07/29/19 07:30 Actual Procedures p Right Robot assisted laparoscopic Partial Nephrectomy (Right) - Curtis Sinha MD Brief history: Patient is a 54-year-old male with a history of a right renal mass felt to be suspicious for renal cell carcinoma. He is here today for surgical extirpation ideally a nephron sparing fashion. Please see outpatient H&P for further details. Perioperative antibiotics are provided for coverage and SCDs used for DVT prophylaxis. Intravenous Tylenol is used for perioperative analgesia. Consent reviewed with patient and family preoperatively today. Procedure: Patient was properly identified and brought into the operative suite after identification of appropriate consent in the chart. General anesthesia with endotracheal ablation was initiated and patient was prepped and draped in the standard fashion for this procedure. Full timeout procedure was followed. Patient was placed in a well-padded right side up flank position with his arm in an arm board in a neutral position. Bed was flexed and Horton catheter was placed in a sterile fashion. A 12 mm incision was made in the right midabdomen in the midclavicular line and abdomen was entered under direct visualization using a 0 degree laparoscope and a visual obturator. No evidence of any injury to the intra-abdominal structures was appreciated on entry to the abdomen. Abdomen was insufflated to 15 mmHg and 2 8 mm robotic ports were placed as well as two 12 mm sales and marketing assistant ports. Patient was noted to have a redundant liver and the decision was rapidly made to add a 5 mm liver extraction port on the left side of the midline near the xiphoid. This was used with a clamp against the lateral abdominal wall to remove the liver from the field of dissection. Robot was brought in and docked and 30 down lens was introduced. Cold scissors were used to drop the colon along the white line of Toldt and to free several hepatic attachments and inflammatory attachments and scarring at the level of the gallbladder without any evidence of injury to the structures. Retraction of the liver was improved and the IVC was visualized easily through a paucity of retroperitoneal fat. Due to the patient's anatomy no kocherization of the duodenum was required. The gonadal vein was identified in the lateral aspect of the IVC was used as a plane of dissection to place lateral traction on the kidney and dissected cephalad until the renal hilum was encountered. A single renal vein was skeletonized and cleaned to its superiormost aspect. A single early branching renal artery was appreciated. This was dissected posterior to the IVC to allow for adequate control. Once the hilum was felt to be well dissected attention was turned to the kidney itself. Lower pole was easily foun d using intraoperative ultrasound with the tumor visualized centrally within it. Gerota's fascia was sharply entered and the kidney was dissected free both within and without Gerota's fascia up to the midpole and upper pole of the kidney. Once this was sufficient to allow for dissection intraoperative ultrasound was used to nimisha the edges of the kidney. Unfortunately, due to the deep nature of the tumor in its central location there was felt to be little benefit to preserving the rind of tissue surrounding it both anterior and posterior. The majority of this tissue ended up being sacrificed. IV bolus of mannitol was provided and the artery was double clamped using short laparoscopic bulldogs. After the kidney was left to drain a long bulldog was placed on the renal vein. Cold scissors were used to dissect circumferentially around the level of the tumor. Excellent clamp and hemostasis was appreciated. Iced saline was used for irrigation of the kidney throughout the case. At the deepest aspect of the dissection the collecting system was entered as expected. The margin was appreciated to be close but not violating the apparent tumor deep within the tissue. After this was freed was placed behind the liver for removal at the end of the case. V lock sutures with Weck clip bolsters had been placed prior to clamp initiation and were used first to close a deep layer anchored at the level of the capsule oversewing the collecting system and deep vessels. The cortex was then reapproximated in an interrupted fashion using Weck clip bolsters. After this was reapproximated the clamps were removed for a total of 15 minutes of warm ischemia time. Excellent hemostasis was appreciated within the deep aspects of the kidney at the level of the close renal defect. FloSeal tissue sealant was placed on the edges of the closure followed by a Surgicel and Tisseel tissue sealant over the renal capsule. Another V lock suture was used to close Gerota's fascia. Specimen was placed within a Endo Catch bag with the string being brought through the inferior most 12 mm incision. Inferior robotic instrument was removed and a #10 DARI drain was brought in via this port placed within the paracolic gutter. Robotic instruments were removed and robot was de- docked. Inferior incision was opened sufficiently to allow for easy removal of the specimen bag. 2-0 silk was used to secure the DARI drain in place. Excess carbon dioxide gas was removed from the abdomen and flexion was removed from the table. Fascia was closed at the level of the extraction port using an 0 Vicryl suture on a UR 5 needle. Easily palpable fascia was closed with the other ports using an 0 Vicryl suture on a UR 6 needle in an interrupted fashion. Skin was closed using 4-0 Monocryl and Dermabond dressings. DARI was placed to bulb suction and anesthesia was reversed. Patient was transferred to the recovery room in stable condition. Follow-up CARE: Patient will be admitted to the floor for standard postoperative management. Surgeon Curtis Sinha MD Wool Supplier Mati Carreon MD, DELMY Baldwin, Josselyn BROCK Estimated Blood Loss 50 Findings Consistent with Post-Op Diagnosis Specimens See above Description of Procedure See above I attest to the content of the Intraoperative Record and any orders documented therein. Any exceptions are noted below.
--- NOTE | 2019-08-06 09:18 | Coding Query ---
PATHOLOGY To promote full compliance with coding requirements relating to patient care, physician participation is requested in all cases of pre coder uncertainty. Please assist us with the question(s) below: Please review the Pathology report and please document any relevant diagnosis(es) below: Diagnosis(es): Renal cell carcinoma Thank you for your time, BASHIR Adkins, [facility]
--- NOTE | 2019-08-12 13:54 | Discharge Summary ---
Date of Service August 12, 2019 Admission HPI Per Admitting Provider Patient with right renal mass pending partial nephrectomy. Please see H&P for further details. Admission Exam (Per Admitting) Constitutional well developed and well nourished; no acute distress Eyes eyes not dysmorphic ENMT Ears: no external ear abnormality Neck trachea midline; no anterior neck swelling Respiratory no respiratory distress and does not use accessory muscles Cardiovascular Vessels: radial pulses present Gastrointestinal (Abdomen) Inspection/Auscultation: abdomen not distended Percussion/Palpation: abdomen soft; abdomen nontender Musculoskeletal Head/Neck/Chest: normocephalic and neck supple Skin normal turgor Neurologic awake; not obtunded Psychiatric Orientation: oriented x 3 Lymphatic no lymphadenopathy Discharge Data Procedures Performed Operation Date: 07/29/19 07:30 Actual Procedures p Right Robotic Laparoscopic Assisted Partial Nephrectomy(Right) - Curtis Sinha MD Hospital Course (1) Right renal mass: A/P 54 yo male POD#2 s/p R robotic partial nephrectomy with Dr. Sinha Voiding spontaneously, nausea and dizziness have resolved. Pt tolerating mech/soft diet well. Doing well with activity and pain controlled. Pt feels ready for discharge. Instructions again reviewed, verbalizes good understanding. Okay to d/c DARI drain prior to discharge. Discharge Instructions See DC instruction sheet. Coding Level of Care Code D/C Day Management <30 mins Diagnoses Right renal mass N28.89
== END 2019-07-31 11:06 | disposition home or self-care (01) | DRG 658 ==
LOC: ASU 05:48 → 3N 10:57